=== PATIENT | female | born 2000 | race African-American/Black ===

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

== ENCOUNTER 2021-02-07 15:30 | Outpatient (CLI) | payer MEDICAID | END 2021-02-07 15:31 | disposition home or self-care (01) | LOC: BICULT 15:30 | PROVIDERS: ATTEND Family Medicine | DX: Z34.82 Encounter for supervision of other normal pregnancy, second trimester (principal); Z3A.21 21 weeks gestation of pregnancy | CPT/HCPCS: 76805 ==